=== PATIENT | male | born 1945 | race Caucasian/White ===

== ENCOUNTER 2019-05-16 08:44 | Outpatient (CLI) | payer MEDICARE, OTHER, SELFPAY ==
--- NOTE | 2019-05-16 09:15 | XR_ITS ---
WS: [id number] KUB, 05/16/2019 Clinical Data: RENAL CALCULI Comparison: KUB, 11/15/2017. Findings: No abnormal intraabdominal masses or calcifications are seen. There is no dilatated small bowel or ev idence of obstruction. There is a phlebolith on the left side of the true pelvis unchanged. No definite renal or ureteral ca lculi are seen. Degenerative changes of the lumbar spine is noted. XR/XR KUB [id number] Impression: No change in phleboliths in left side of the true pelvis.
== END 2019-05-16 08:45 | disposition home or self-care (01) ==
LOC: RAD 08:53
PROVIDERS: Family Provider Internal Medicine; PCP Internal Medicine; Visit Provider Urology
DX: N20.0 Calculus of kidney (principal)
CPT/HCPCS: 74018; 81001

== ENCOUNTER 2021-05-19 09:53 | Outpatient (CLI) | payer MEDICARE, BC, SELFPAY ==
--- NOTE | 2021-05-19 10:15 | XR_ITS ---
WS: [id number] Exam: XR KUB [id number] Date/Time of Exam: 05/19/2021 10:38 AM Reason For Exam: STONES Comparison 05/16/2019. No bowel obstruction or free air. No sign of organ enlargement. Surgical sutures seen in the central pelvis. Degenerative change and mild lumbar scoliosis. Nonspecific pelvic calcifications. XR/XR KUB [id number] IMPRESSION: 1. No acute process identified. Additional minor findings as above.
== END 2021-05-19 09:54 | disposition home or self-care (01) ==
LOC: RAD 10:04
PROVIDERS: PCP Internal Medicine; Visit Provider Urology
DX: N20.9 Urinary calculus, unspecified (principal)
CPT/HCPCS: 74018; 81003